=== PATIENT | male | born 2000 | race Caucasian/White ===

== ENCOUNTER 2018-03-02 16:08 | Emergency (ER) | payer OTHER ==
--- NOTE | 2018-03-02 17:04 | EDPHY ---
H & P Stated Complaint: etoh last nigh/>10 hard liquor/feels heart is racing/took 3 ( 500mg) tylenol Time Seen by Provider: 03/02/18 17:04 HPI/ROS: CHIEF COMPLAINT: Mild nausea after taking 1500 mg of Tylenol HISTORY OF PRESENT ILLNESS: The patient presents to the ED with mild nausea and palpitations after taking 1500 mg of Tylenol this morning. The patient reported he drank heavily last night for his friends 19st birthday. He had no vomiting or hematemesis. The patient denies melena. The patient denies any fever, cough or congestion. Patient denies significant past medical history. He came to the ED today concerned about the possibility of a toxic Tylenol ingestion. The patient reportedly took no other medications. He has no other complaints. REVIEW OF SYSTEMS: A comprehensive 10 point review of systems is otherwise negative aside from elements mentioned in the history of present illness. Source: Patient - Personal History Current Tetanus Diphtheria and Acellular Pertussis (TDAP): Yes - Medical/Surgical History Hx Asthma: No Hx Chronic Respiratory Disease: No Hx Diabetes: No Hx Cardiac Disease: No Hx Renal Disease: No Hx Cirrhosis: No Hx Alcoholism: No Hx HIV/AIDS: No Hx Splenectomy or Spleen Trauma: No Other PMH: denies - Social History Smoking Status: Never smoked - Physical Exam Exam: General Appearance: Alert, no distress Eyes: Pupils equal and round no pallor or injection ENT, Mouth: Mucous membranes moist Respiratory: There are no retractions, lungs are clear to auscultation Cardiovascular: Regular rate and rhythm Gastrointestinal: Abdomen is soft and nontender, no masses, bowel sounds normal Neurological: A&O, normal motor function, normal sensory exam, normal cranial nerves Skin: Warm and dry, no rashes Musculoskeletal: Neck is supple nontender Extremities: symmetrical, full range of motion Constitutional: Initial Vital Signs Temperature (C) 36.7 C 03/02/18 16:12 Heart Rate 79 03/02/18 16:12 Respiratory Rate 18 03/02/18 16:12 Blood Pressure 135/69 H 03/02/18 16:12 O2 Sat (%) 98 03/02/18 16:12 O2 Delivery Mode Room Air Allergies/Adverse Reactions: ibuprofen Allergy (Verified 03/02/18 16:12) Home Medications: Medication Instructions Recorded NK [No Known Home Meds] 03/02/18 Medical Decision Making - Diagnostics EKG Interpretation: EKG: Complete interpretation has been separately recorded in the [employer] archive. Summary impression: The sinus rhythm, rate 65, early repolarization is noted. ED Course/Re-evaluation: The patient is a benign abdominal examination. His EKG demonstrates no evidence of an arrhythmia. The patient has been informed that given his body weight 1500 mg of Tylenol is not a toxic ingestion. The patient is reassured and will be discharged home. Differential Diagnosis: Differential diagnosis considered includes Tylenol toxicity, arrhythmia, dehydration Departure - Departure Disposition: Home, Routine, Self-Care Clinical Impression: Chest pain Condition: Good Instructions: Chest Pain (ED) Additional Instructions: 1. Your EKG demonstrates no evidence of an acute abnormality. 2. You did not ingest a toxic amount Tylenol. 3. Do not take more than 3 g of Tylenol in a 24 hr. 4. Return to the ED for markedly worsening symptoms or other concerns. Referrals: [facility] [Other] - As per Instructions
--- NOTE | 2018-03-02 17:23 | CPEKG ---
Test Reason : OPEN Blood Pressure : / mmHG Vent. Rate : 065 BPM Atrial Rate : 064 BPM P-R Int : 171 ms QRS Dur : 094 ms QT Int : 397 ms P-R-T Axes : 168 070 057 degrees QTc Int : 413 ms Normal sinus rhythm Early repolarization Confirmed by Kevin Navarro ([id number]) on 03/02/2018 5:22:52 PM Referred By: Confirmed By:Kevin Navarro
[2018-03-02 17:37] VITALS: BP 129/85
== END 2018-03-02 17:36 | disposition home or self-care (01) ==
DX: R07.9 Chest pain, unspecified (principal); R11.0 Nausea

== ENCOUNTER 2018-03-03 03:50 | Emergency (ER) | payer OTHER ==
[2018-03-03] MEDS ORDERED: NS 1,000 ML IV ONE (04:07)
--- NOTE | 2018-03-03 04:29 | EDPHY ---
H & P Stated Complaint: SOB, feels like heart is racing, here earlier today Time Seen by Provider: 03/03/18 03:59 HPI/ROS: Chief Complaint: Palpitations, heart racing HPI: 18-year-old male complaining of the sensation of numbness in the center of his chest with occasional heart racing and palpitations. Patient was seen here earlier and had a normal ECG. No real chest pain. It is not exertional or positional. No nausea or vomiting. He does admit that he has been drinking quite heavily for the last week. No diarrhea or constipation. No melena. Says that when he was lying down trying to go to sleep tonight he started feeling a numbness sensation cm chest which them made his heart start to race. ROS: 10 systems were reviewed and were negative except those elements noted in the HPI. PMH: Denies Social History: No smoking, recent heavy alcohol Family History: non-contributory Physical Exam: Gen: Awake, Alert, No Distress HEENT: Nose: no rhinorrhea Eyes: PERRLA, EOMI Mouth: Moist mucosa Neck: Supple, no JVD Chest: nontender, lungs clear to auscultation Heart: S1, S2 normal, no murmur Abd: Soft, non-tender, no guarding Back: no CVA tenderness, no midline tenderness Ext: no edema, non-tender Skin: no rash Neuro: CN II-XII intact, Sensation grossly intact, Strength 5/5 in bilateral upper and lower extremities - Personal History Current Tetanus/Diphtheria Vaccine: Yes Current Tetanus Diphtheria and Acellular Pertussis (TDAP): Yes - Medical/Surgical History Hx Asthma: No Hx Chronic Respiratory Disease: No Hx Diabetes: No Hx Cardiac Disease: No Hx Renal Disease: No Hx Cirrhosis: No Hx Alcoholism: No Hx HIV/AIDS: No Hx Splenectomy or Spleen Trauma: No Other PMH: denies - Social History Smoking Status: Never smoked Constitutional: Initial Vital Signs Temperature (C) 36.4 C 03/03/18 03:52 Heart Rate 73 03/03/18 03:52 Respiratory Rate 18 03/03/18 03:52 Blood Pressure 147/87 H 03/03/18 03:52 O2 Sat (%) 100 03/03/18 03:52 O2 Delivery Mode Room Air Allergies/Adverse Reactions: ibuprofen Allergy (Verified 03/03/18 03:50) Home Medications: Medication Instructions Recorded NK [No Known Home Meds] 03/02/18 Medical Decision Making ED Course/Re-evaluation: Patient is feeling improved after leave normal saline. Laboratory evaluations are unremarkable. I have reviewed his ECG from yesterday is unremarkable as well. I do not see any evidence of acute cardiac or respiratory process. I think that his symptoms are secondary to his recent heavy alcohol usage. No evidence of infection, blood clot, ischemia, or metabolic derangement. Will discharge with referral to [facility] follow-up, return for any concerns. - Data Points Laboratory Results: Laboratory Results 03/03/18 04:25 03/03/18 04:25 03/03/18 03/03/18 04:25 04:25 WBC 10.13 10^3/uL H 10^3/uL (3.80-9.50) RBC 5.33 10^6/uL 10^6/uL (4.40-6.38) Hgb 16.2 g/dL g/dL (13.7-17.5) Hct 46.5 % % (40.0-51.0) MCV 87.2 fL fL (81.5-99.8) MCH 30.4 pg pg (27.9-34.1) MCHC 34.8 g/dL g/dL (32.4-36.7) RDW 13.4 % % (11.5-15.2) Plt Count 263 10^3/uL 10^3/uL (150-400) MPV 9.6 fL fL (8.7-11.7) Neut % (Auto) 65.6 % % (39.3-74.2) Lymph % (Auto) 26.0 % % (15.0-45.0) [place] % (Auto) 7.1 % % (4.5-13.0) Eos % (Auto) 0.5 % L % (0.6-7.6) Baso % (Auto) 0.6 % % (0.3-1.7) Nucleat RBC Rel Count 0.0 % % (0.0-0.2) Absolute Neuts (auto) 6.65 10^3/uL H 10^3/uL (1.70-6.50) Absolute Lymphs (auto) 2.63 10^3/uL 10^3/uL (1.00-3.00) Absolute Monos (auto) 0.72 10^3/uL 10^3/uL (0.30-0.80) Absolute Eos (auto) 0.05 10^3/uL 10^3/uL (0.03-0.40) Absolute Basos (auto) 0.06 10^3/uL 10^3/uL (0.02-0.10) Absolute Nucleated RBC 0.00 10^3/uL 10^3/uL (0-0.01) Immature Gran % 0.2 % % (0.0-1.1) Immature Gran # 0.02 10^3/uL 10^3/uL (0.00-0.10) Sodium 141 mEq/L mEq/L (135-145) Potassium 3.8 mEq/L mEq/L (3.3-5.0) Chloride 106 mEq/L mEq/L (97-110) Carbon Dioxide 23 mEq/l mEq/l (22-31) Anion Gap 12 mEq/L mEq/L (8-16) BUN 10 mg/dL mg/dL (7-23) Creatinine 0.7 mg/dL mg/dL (0.7-1.3) Estimated GFR > 60 Glucose 103 mg/dL H mg/dL (70-100) Calcium 10.0 mg/dL mg/dL (8.5-10.4) Medications Given: Discontinued Medications Sodium Chloride (Ns) 1,000 mls @ 0 mls/hr IV ONCE ONE; Wide Open PRN Reason: Protocol Stop: 03/03/18 04:08 Last Admin: 03/03/18 04:23 Dose: 1,000 mls Departure - Departure Disposition: Home, Routine, Self-Care Clinical Impression: Palpitations Condition: Good Instructions: Heart Palpitations (ED), Abuse of Alcohol (ED) Additional Instructions: Follow up with [facility] in 2-3 days for further evaluation. Return to the emergency department for chest pain, shortness of breath, heart racing, fainting, or any other concerns. Referrals: ERNA GILLIAM ,. [Clinic] - As per Instructions
[2018-03-03 04:36] LABS: PLATELET COUNT 263 10^3/uL (150-400)
[2018-03-03 05:32] VITALS: BP 140/89
== END 2018-03-03 05:32 | disposition home or self-care (01) ==
DX: R00.2 Palpitations (principal); E86.9 Volume depletion, unspecified

== ENCOUNTER 2018-03-03 17:50 | Emergency (ER) | payer OTHER ==
[2018-03-03 19:18] LABS: PLATELET COUNT 252 10^3/uL (150-400)
--- NOTE | 2018-03-03 19:29 | CPEKG ---
Test Reason : OPEN Blood Pressure : / mmHG Vent. Rate : 059 BPM Atrial Rate : 057 BPM P-R Int : 166 ms QRS Dur : 103 ms QT Int : 436 ms P-R-T Axes : 129 068 045 degrees QTc Int : [address] elev, probable normal early repol pattern Confirmed by Seth Lee ([id number]) on 03/03/2018 7:29:34 PM Referred By: Confirmed By:Seth Lee
[2018-03-03] MEDS ORDERED: NS 1,000 ML IV ONE (19:32)
[2018-03-03] MEDS ORDERED: METOCLOPRAMIDE 10 MG/2 ML VIAL IVP ONE (19:32)
[2018-03-03 19:50] VITALS: BP 143/76
--- NOTE | 2018-03-03 20:13 | EDPHY ---
H & P Smoking Status: Never smoked Time Seen by Provider: 03/03/18 18:42 HPI/ROS: CHIEF COMPLAINT: Headache and total body numbness HISTORY OF PRESENT ILLNESS: Patient is a 18-year-old male with history of depression here with his 3rd visit in the last 2 days in this emergency room. He has been seen previously for chest numbness with negative evaluations for acute cardiopulmonary disease. Today he reports that he was feeling well this morning and then take a nap this afternoon when he woke up he had a severe headache and felt like his entire body was numb. He has no history of aneurysm. He does have a history of migraines but he states this feels different. Denies any weakness in his extremities, vision changes, trouble finding his words. REVIEW OF SYSTEMS: Constitutional: No fever, no chills. Eyes: No discharge. ENT: No sore throat. Cardiovascular: No chest pain, no palpitations. Respiratory: No cough, no shortness of breath. Gastrointestinal: No abdominal pain, no vomiting. Genitourinary: No hematuria. Musculoskeletal: No back pain. Skin: No rashes. Neurological: + headache. (Mike Carbone) Physical Exam: General Appearance: Alert and no distress. Eyes: Pupils equal and round no injection. Respiratory: Chest is nontender, lungs are clear to auscultation. Cardiac: regular rate and rhythm. Gastrointestinal: Abdomen is soft and nontender, no masses, bowel sounds normal. Musculoskeletal: Neck is supple and nontender. Extremities have full range of motion and are nontender. Skin: No rashes or lesions. Neuro: Cranial nerves grossly intact. Equal strength and sensation in bilateral upper extremities. (Mike Carbone) Constitutional: Initial Vital Signs Temperature (C) 36.7 C 03/03/18 18:06 Heart Rate 65 03/03/18 18:06 Respiratory Rate 18 03/03/18 18:06 Blood Pressure 141/80 H 03/03/18 18:06 O2 Sat (%) 99 03/03/18 18:06 O2 Delivery Mode Room Air Allergies/Adverse Reactions: ibuprofen Allergy (Verified 03/03/18 18:10) Home Medications: Medication Instructions Recorded NK [No Known Home Meds] 03/02/18 Medical Decision Making - Diagnostics Imaging Results: Imaging Impressions Head CT 03/03/18 18:54 Impression: Normal brain. No intracranial hemorrhage or mass. Findings discussed with Emergency Department physician field assistant, Mike Carbnoe PA-C on March 03, 2018 at 1932 hours. ED Course/Re-evaluation: I did not see this patient while he was in the emergency department. However his care was discussed with the PA while the patient was in the department. I agree with treatment plan and management (Viktor Baesley) 18-year-old male here with severe headache and total body numbness. Evaluation once again today shows no acute cardiopulmonary process and CT the head is negative for bleed or other acute findings. He does present with approximately 2 hr after the onset of the headaches of this is quite sensitive for subarachnoid hemorrhage. I did discuss with the patient. We discussed the possibility of anxiety as and hyperventilation is a source of his total body numbness. He agrees to follow up with the primary care physician and be referred to Neurology as needed. (Mike Carbone) - Data Points Laboratory Results: Laboratory Results 03/03/18 19:00 03/03/18 19:00 03/03/18 03/03/18 19:00 19:00 WBC 7.19 10^3/uL 10^3/uL (3.80-9.50) RBC 5.33 10^6/uL 10^6/uL (4.40-6.38) Hgb 16.0 g/dL g/dL (13.7-17.5) Hct 46.7 % % (40.0-51.0) MCV 87.6 fL fL (81.5-99.8) MCH 30.0 pg pg (27.9-34.1) MCHC 34.3 g/dL g/dL (32.4-36.7) RDW 13.6 % % (11.5-15.2) Plt Count 252 10^3/uL 10^3/uL (150-400) MPV 9.5 fL fL (8.7-11.7) Neut % (Auto) 63.6 % % (39.3-74.2) Lymph % (Auto) 25.3 % % (15.0-45.0) [place] % (Auto) 9.2 % % (4.5-13.0) Eos % (Auto) 0.6 % % (0.6-7.6) Baso % (Auto) 1.0 % % (0.3-1.7) Nucleat RBC Rel Count 0.0 % % (0.0-0.2) Absolute Neuts (auto) 4.58 10^3/uL 10^3/uL (1.70-6.50) Absolute Lymphs (auto) 1.82 10^3/uL 10^3/uL (1.00-3.00) Absolute Monos (auto) 0.66 10^3/uL 10^3/uL (0.30-0.80) Absolute Eos (auto) 0.04 10^3/uL 10^3/uL (0.03-0.40) Absolute Basos (auto) 0.07 10^3/uL 10^3/uL (0.02-0.10) Absolute Nucleated RBC 0.00 10^3/uL 10^3/uL (0-0.01) Immature Gran % 0.3 % % (0.0-1.1) Immature Gran # 0.02 10^3/uL 10^3/uL (0.00-0.10) Sodium 141 mEq/L mEq/L (135-145) Potassium 3.9 mEq/L mEq/L (3.3-5.0) Chloride 105 mEq/L mEq/L (97-110) Carbon Dioxide 25 mEq/l mEq/l (22-31) Anion Gap 11 mEq/L mEq/L (8-16) BUN 8 mg/dL mg/dL (7-23) Creatinine 0.8 mg/dL mg/dL (0.7-1.3) Estimated GFR > 60 Glucose 94 mg/dL mg/dL (70-100) Calcium 9.8 mg/dL mg/dL (8.5-10.4) Magnesium 2.0 mg/dL mg/dL (1.6-2.3) Medications Given: Discontinued Medications Diphenhydramine HCl (Benadryl Injection) 12.5 mg IVP EDNOW ONE Stop: 03/03/18 19:34 Last Admin: 03/03/18 19:46 Dose: 12.5 mg Sodium Chloride (Ns) 1,000 mls @ 0 mls/hr IV EDNOW ONE; Wide Open PRN Reason: Protocol Stop: 03/03/18 19:33 Last Admin: 03/03/18 19:45 Dose: 1,000 mls Metoclopramide HCl (Reglan Injection) 10 mg IVP ONCE ONE Stop: 03/03/18 19:33 Last Admin: 03/03/18 19:46 Dose: 10 mg Departure - Departure Disposition: Home, Routine, Self-Care Clinical Impression: Paresthesias, Acute headache Condition: Good Instructions: Paresthesia (ED) Referrals: NONE *PRIMARY CARE P,. [Primary Care Provider] - As per Instructions Derek Ventura MD [Medical Doctor] - As per Instructions
== END 2018-03-03 20:28 | disposition home or self-care (01) ==
DX: R51 Headache (principal); R20.2 Paresthesia of skin; E86.9 Volume depletion, unspecified
CPT/HCPCS: 96374; J1200; J2765

== ENCOUNTER → 2018-03-08 | Outpatient (CLI) | payer OTHER | LOC: FIMAGING 16:52 | PROVIDERS: ATTEND Internal Medicine | DX: R00.2 Palpitations (principal); R07.9 Chest pain, unspecified ==

== ENCOUNTER 2018-03-13 21:57 | Emergency (ER) | payer OTHER ==
--- NOTE | 2018-03-13 22:22 | EDPHY ---
H & P Stated Complaint: "was playing around and inhaled butane" now lightheaded and palpations Time Seen by Provider: 03/13/18 22:22 HPI/ROS: HPI CHIEF COMPLAINT: Inhaled butane. HISTORY OF PRESENT ILLNESS: Patient 18-year-old male, states he was playing around this evening and thought it would be fine 8 to take a small hit out of a pipe. He with a pipe with a crew truck driver. And inhaled a small amount of butane. [place] short of breath. Additionally felt lightheaded. Of note the patient was recently in the emergency room as he states that he was drinking a large amount of alcohol and took extra-strength Tylenol was concerned about his liver. He presents to the emergency room states this happened an hour ago he is slightly better. Does admit to lightheadedness after doing this. He states very small amount of butane. Currently denies chest pain. Of note this is this patient's 4th ER visit. The patient was seen on March 02, additionally on March 03 x2. Patient at 1 point presented for anxiety, racing heart. Also present for headache. Also presented for drinking too much alcohol and taking Tylenol. Vital signs stable upon arrival. No acute distress. Past Medical History: Denies medical history Past Surgical History: Denies surgical history Social History: Denies daily use drugs alcohol tobacco. Family History: Noncontributory ROS REVIEW OF SYSTEMS: 10 Systems were reviewed and negative with the exception of the elements mentioned in the history of present illness. Exam Constitutional appears well nontoxic no acute distress, triage nursing summary reviewed, vital signs reviewed, awake/alert. Eyes normal conjunctivae and sclera, EOMI, PERRLA. HENT normal inspection, atraumatic, moist mucus membranes, no epistaxis, neck supple/ no meningismus, no raccoon eyes. Respiratory clear to auscultation bilaterally, normal breath sounds, no respiratory distress, no wheezing. Cardiovascular rate normal, regular rhythm, no murmur, no edema, distal pulses normal. Gastrointestinal soft, non-tender, no rebound, no guarding, normal bowel sounds, no distension, no pulsatile mass. Genitourinary no CVA tenderness. Musculoskeletal no midline vertebral tenderness, full range of motion, no calf swelling, no tenderness of extremities, no meningismus, good pulses, neurovascularly intact. Skin pink, warm, & dry, no rash, skin atraumatic. Neurologic awake, alert and oriented x 3, AAOx3, moves all 4 extremities equally, motor intact, sensory intact, CN II-XII intact, normal cerebellar, normal vision, normal speech. Psychiatric normal mood/affect. Heme/Lymph/Immune no lymphadenopathy. Differential Diagnosis: Includes but is not limited to in a particular order acute ingestion, butane ingestion, butane inhalation injury, pneumothorax. Medical Decision Making: Plan for this patient EKG and two view chest x-ray. software test specialist. Re-evaluate. Touch base with poison Control however most likely symptomatic control symptomatic for support. Re-evaluation: EKG interpretation by me on record in [employer] system. Impression time of eKG 2230, Shows an early repol pattern. No acute ischemia no ST elevation no significant ST depression. When compared to patient's old EKG dated 03/03/2018 and 03/02/2018 is unchanged and very similar morphology. 2254: Spoke with Poison Control, [place], discussed case in detail. Case # [id number] Nothing acute to do. ED x-ray chest two view negative for acute cardiopulmonary disease. 0149 patient re-evaluated this time resting comfortably in fact he was sleeping. Denies chest pain or shortness of breath. Patient's EKG unchanged from previous EKGs comma chest x-ray unremarkable. Patient feels comfortable going home. Return precautions discussed. Source: Patient - Personal History Current Tetanus/Diphtheria Vaccine: Yes Current Tetanus Diphtheria and Acellular Pertussis (TDAP): Yes - Medical/Surgical History Hx Asthma: No Hx Chronic Respiratory Disease: No Hx Diabetes: No Hx Cardiac Disease: No Hx Renal Disease: No Hx Cirrhosis: No Hx Alcoholism: No Hx HIV/AIDS: No Hx Splenectomy or Spleen Trauma: No Other PMH: denies - Social History Smoking Status: Never smoked Constitutional: Initial Vital Signs Temperature (C) 36.6 C 03/13/18 22:00 Heart Rate 64 03/13/18 22:00 Respiratory Rate 16 03/13/18 22:00 Blood Pressure 146/75 H 03/13/18 22:00 O2 Sat (%) 98 03/13/18 22:00 O2 Delivery Mode Room Air Allergies/Adverse Reactions: ibuprofen Allergy (Verified 03/13/18 22:02) Home Medications: Medication Instructions Recorded NK [No Known Home Meds] 03/02/18 Medical Decision Making - Diagnostics Imaging Results: Imaging Impressions Chest X-Ray 03/13/18 22:26 Impression: No acute pulmonary disease. Departure - Departure Disposition: Home, Routine, Self-Care Clinical Impression: Inhalation injury Condition: Good Instructions: Pneumonitis (ED), Smoke Inhalation (ED), Anxiety (ED) Additional Instructions: 1. Stay well-hydrated and rest. 2. Return emergency room if you have worsening symptoms. Referrals: Sunita Paul MD [Primary Care Provider] - As per Instructions
[2018-03-14 01:54] VITALS: BP 150/77
--- NOTE | 2018-03-17 23:58 | CPEKG ---
Test Reason : OPEN Blood Pressure : / mmHG Vent. Rate : 064 BPM Atrial Rate : 064 BPM P-R Int : 163 ms QRS Dur : 117 ms QT Int : 444 ms P-R-T Axes : 057 083 031 degrees QTc Int : 458 ms Sinus rhythm Incomplete right bundle branch block ST elev, probable normal early repol pattern Confirmed by Eder Sneed ([id number]) on 03/17/2018 11:57:47 PM Referred By: Confirmed By:Eder Sneed
== END 2018-03-14 01:54 | disposition home or self-care (01) ==
DX: T59.891A Toxic effect of other specified gases, fumes and vapors, accidental (unintentional), initial encounter (principal); R00.8 Other abnormalities of heart beat; Z86.59 Personal history of other mental and behavioral disorders